=== PATIENT | male | born 1995 | race Caucasian/White ===

== ENCOUNTER 2023-08-24 11:40 | Emergency (ER) | payer OTHER ==
[~2023-08-24] VITALS: Ht 182.9 cm; Wt 82.7 kg
[2023-08-24 11:51] VITALS: BP 95/56; PULSE 82; RESP 18; TEMP 97.9; O2SAT 98
[2023-08-24] MEDS: ketorolac tromethamine 15mg/ml inj. IM ONE (13:02)
[2023-08-24] MEDS ORDERED: LIDO700A32 TOP (13:41)
[2023-08-24] MEDS ORDERED: METH-798 PO (13:41)
[2023-08-24] MEDS ORDERED: IBUP-1986 PO (13:41)
== END 2023-08-24 14:06 | disposition home or self-care (01) ==
LOC: ER 11:41
DX: S39.012A Strain of muscle, fascia and tendon of lower back, initial encounter (principal); X50.0XXA Overexertion from strenuous movement or load, initial encounter; Y93.89 Activity, other specified; Y92.89 Other specified places as the place of occurrence of the external cause; Y99.8 Other external cause status
CPT/HCPCS: 72100; 96372; 99283; J1885